=== PATIENT | male | born 1980 | race Caucasian/White ===

== ENCOUNTER 2023-01-30 12:53 | Emergency (ER) | payer OTHER ==
[~2023-01-30] VITALS: Ht 188 cm; Wt 136.4 kg
[~2023-01-30 12:53] MED LIST: FLEXERIL OR; NAPROSYN500 MG OR; NO MEDS; ULTRAM50 M1 PO
[2023-01-30] MEDS ORDERED: METHOCARBAMOL500 MG PO ×2 (14:43→17:01)
[2023-01-30] MEDS ORDERED: NAPROXEN500 MG PO ×2 (14:43→17:01)
[2023-01-30] MEDS ORDERED: PREDNISONE10 MG PO ×2 (14:43→17:01)
[2023-01-30 14:57] VITALS: BP 141/88
== END 2023-01-30 14:57 | disposition home or self-care (01) | DRG 552 ==
LOC: ED 12:53
DX: M54.50 Low back pain, unspecified (principal)